=== PATIENT | male | born 1975 | race Caucasian/White ===

== ENCOUNTER 2022-07-06 17:45 | Inpatient (IN) | payer OTHER ==
[~2022-07-06] VITALS: Ht 180.3 cm; Wt 110.2 kg
[2022-07-06 18:24] LABS: BASO # 0.1 10*3/uL (0.0-0.1); BASO % 0.5 % (0.0-1.0); EOS # 0.2 10*3/uL (0.0-0.4); EOS % 1.6 % (1.0-4.0); HEMATOCRIT 43.7 % (42.0-52.0); LYMPH # 0.8 10*3/uL (1.3-4.4); LYMPH % 6.4 % (27.0-41.0); MEAN CELL VOLUME 89.2 fl (80.0-94.0); MEAN CORPUSCULAR HGB 30.6 pg (27.0-31.0); MEAN CORPUSCULAR HGB CONC 34.3 g/dl (33.0-37.0); MONO # 0.8 10*3/uL (0.1-1.0); MONO % 6.5 % (3.0-9.0); NEUT # 10.9 10*3/uL (2.3-7.9); NEUT % 84.5 % (47.0-73.0); PLATELET COUNT AUTOMATED 195 10*3/uL (130-400); RED CELL DISTRI WIDTH 12.3 % (0-14.5); WHITE BLOOD COUNT 12.9 10*3/uL (4.8-10.8)
[2022-07-06 18:33] VITALS: BP 178/149
[2022-07-06 18:47] LABS: ALKALINE PHOSPHATASE 64 U/L (46-116); BUN 16 mg/dl (9-23); CHLORIDE 98 mmol/L (98-107); POTASSIUM 3.3 mmol/L (3.4-5.1); SGPT/ALT 21 U/L (10-49); TOTAL PROTEIN 7.2 gm/dL (6.0-8.0)
[2022-07-06 19:45] LABS: ACT PARTIAL THROMBO TIME 25.3 SECONDS (20.0-32.1)
[2022-07-06 21:30] VITALS: BP 170/91; BP 174/97
[2022-07-06] MEDS ORDERED: VALSARTAN-HCTZ1 EAC2 PO (22:12)
[2022-07-07] VITALS (8 sets, daily range): BP systolic 137–169; BP diastolic 73–114
[2022-07-07 06:12] LABS: BASO % 0.5 % (0.0-1.0); EOS # 0.3 10*3/uL (0.0-0.4); EOS % 4.7 % (1.0-4.0); HEMATOCRIT 40.4 % (42.0-52.0); LYMPH # 1.1 10*3/uL (1.3-4.4); LYMPH % 19.2 % (27.0-41.0); MEAN CELL VOLUME 90.4 fl (80.0-94.0); MEAN CORPUSCULAR HGB 30.6 pg (27.0-31.0); MEAN CORPUSCULAR HGB CONC 33.9 g/dl (33.0-37.0); MEAN PLATELET VOLUME 10.4 fl (9.6-12.3); MONO # 0.6 10*3/uL (0.1-1.0); MONO % 10.7 % (3.0-9.0); NEUT # 3.6 10*3/uL (2.3-7.9); NEUT % 64.7 % (47.0-73.0); PLATELET COUNT AUTOMATED 153 10*3/uL (130-400); RED BLOOD COUNT 4.47 10*6/uL (4.50-5.90); RED CELL DISTRI WIDTH 12.5 % (0-14.5); WHITE BLOOD COUNT 5.5 10*3/uL (4.8-10.8)
[2022-07-07 08:02] LABS: BUN 12 mg/dl (9-23); CHLORIDE 106 mmol/L (98-107); POTASSIUM 3.6 mmol/L (3.4-5.1)
[2022-07-07] MEDS ORDERED: CALCIUM 600 WI1 EAC2 PO (14:01)
[2022-07-07] MEDS ORDERED: HYDROCODONE-AC1 EAC1 PO ×2 (14:01→14:07)
[2022-07-07] MEDS ORDERED: ASPIRIN ADULT L81 M1 PO ×2 (14:01→14:07)
[2022-07-07] MEDS ORDERED: CALCIUM 600 MG1 EAC6 PO (14:07)
== END 2022-07-07 15:33 | disposition home or self-care (01) | DRG 493 ==
LOC: ED 17:45 → EDHOLD 20:07 → 4E 20:54
PROVIDERS: Emergency Medicine; Internal Medicine; ADMIT Internal Medicine; ATTEND Internal Medicine
PROC: 0QSH06Z Reposition Left Tibia with Intramedullary Internal Fixation Device, Open Approach (ICD-10-PCS; principal; 2022-07-07)
PROC: 3E0T3BZ Introduction of Anesthetic Agent into Peripheral Nerves and Plexi, Percutaneous Approach (ICD-10-PCS; 2022-07-07)
PROC: 3E0T33Z Introduction of Anti-inflammatory into Peripheral Nerves and Plexi, Percutaneous Approach (ICD-10-PCS; 2022-07-07)
DX: S82.222A Displaced transverse fracture of shaft of left tibia, initial encounter for closed fracture (principal); E87.1 Hypo-osmolality and hyponatremia; S82.422A Displaced transverse fracture of shaft of left fibula, initial encounter for closed fracture; I10 Essential (primary) hypertension; E87.6 Hypokalemia; W18.39XA Other fall on same level, initial encounter; R73.9 Hyperglycemia, unspecified; D64.9 Anemia, unspecified; Z88.2 Allergy status to sulfonamides; Z88.8 Allergy status to other drugs, medicaments and biological substances; Z88.1 Allergy status to other antibiotic agents; Z82.3 Family history of stroke; Y93.89 Activity, other specified; Y92.89 Other specified places as the place of occurrence of the external cause; Y99.8 Other external cause status

== ENCOUNTER → 2022-07-19 | Outpatient (CLI) | payer OTHER ==
[~2022-07-19] MED LIST: ASPIRIN ADULT L81 M1 PO; CALCIUM 600 MG1 EAC6 PO; CALCIUM 600 WI1 EAC2 PO; HYDROCODONE-AC1 EAC1 PO; VALSARTAN-HCTZ1 EAC2 PO
== END | disposition home or self-care (01) ==
LOC: RAD 11:23
PROVIDERS: ATTEND Orthopaedic Surgery
DX: S82.252A Displaced comminuted fracture of shaft of left tibia, initial encounter for closed fracture (principal); S82.452A Displaced comminuted fracture of shaft of left fibula, initial encounter for closed fracture; Z98.890 Other specified postprocedural states; X58.XXXA Exposure to other specified factors, initial encounter; Y93.89 Activity, other specified; Y92.89 Other specified places as the place of occurrence of the external cause; Y99.8 Other external cause status

== ENCOUNTER → 2022-08-16 | Outpatient (CLI) | payer OTHER | END | disposition home or self-care (01) | LOC: ORTHO 00:28 | PROVIDERS: ATTEND Orthopaedic Surgery | DX: S82.222D Displaced transverse fracture of shaft of left tibia, subsequent encounter for closed fracture with routine healing (principal); X58.XXXD Exposure to other specified factors, subsequent encounter ==

== ENCOUNTER → 2022-09-30 | Outpatient (CLI) | payer OTHER | END | disposition home or self-care (01) | LOC: ORTHO 01:23 | PROVIDERS: ATTEND Orthopaedic Surgery | DX: S82.222D Displaced transverse fracture of shaft of left tibia, subsequent encounter for closed fracture with routine healing (principal); X58.XXXD Exposure to other specified factors, subsequent encounter ==

== ENCOUNTER → 2023-01-13 | Outpatient (CLI) | payer OTHER | LOC: ORTHO 12:00 | PROVIDERS: ATTEND Orthopaedic Surgery | DX: S82.222D Displaced transverse fracture of shaft of left tibia, subsequent encounter for closed fracture with routine healing (principal); X58.XXXD Exposure to other specified factors, subsequent encounter ==